=== PATIENT | female | born 1960 | race Caucasian/White ===

== ENCOUNTER 2017-07-13 17:37 | Emergency (ER) | payer MEDICAID ==
[~2017-07-13] VITALS: Ht 162.6 cm; Wt 77.0 kg
[2017-07-13] MEDS ORDERED: TETRACAINE 0.5% OPHTH DROPS 4ML OP ONE (18:00)
[2017-07-13] MEDS ORDERED: FLUORESCEIN SODIUM 1MG/STRIP OP ONE (18:00)
[2017-07-13 19:00] VITALS: BP 154/104
== END 2017-07-13 19:04 | disposition home or self-care (01) ==
LOC: ER 17:54
DX: S05.02XA Injury of conjunctiva and corneal abrasion without foreign body, left eye, initial encounter (principal); I10 Essential (primary) hypertension; X58.XXXA Exposure to other specified factors, initial encounter; Y93.89 Activity, other specified; Y92.89 Other specified places as the place of occurrence of the external cause; Y99.8 Other external cause status
CPT/HCPCS: 99283